=== PATIENT | male | born 1945 | race Caucasian/White ===

== ENCOUNTER 2017-12-06 10:38 | Outpatient (CLI) | payer MEDICARE, BC | END 2017-12-06 10:39 | disposition home or self-care (01) | LOC: BICRAD 10:38 | PROVIDERS: ATTEND Family Medicine | DX: R06.02 Shortness of breath (principal); E78.5 Hyperlipidemia, unspecified | CPT/HCPCS: 36415; 71046; 80061; 80076 ==

== ENCOUNTER 2017-12-23 11:23 | Outpatient (CLI) | payer MEDICARE, BC ==
--- NOTE | 2017-12-23 11:43 | NM ---
RADIONUCLIDE STRESS AND REST MYOCARDIAL PERFUSION SCAN WITH CT ATTENUATION CORRECTION AND SPECT IMAGI NG: LEFT VENTRICULAR WALL MOTION EVALUATION AND EJECTION FRACTION: HISTORY: Chest pain. FINDINGS: Raad protocol. Test time 7 minutes 0 seconds. Heterogeneous uptake of radiotracer throughout the left ventricular myocardium. No focal perfusion d efect or reversibility. QGS analysis of gated SPECT images shows no focal wall motion abnormalities. TID is 0.94. LHR is 30%. Left ventricular ejection fraction is calculated at 66%. IMPRESSION: 1. Normal myocardial perfusion scan. 2. Normal left ventricular ejection fraction. POS: JARROD
== END 2017-12-23 11:24 | disposition home or self-care (01) ==
LOC: NM 11:23
PROVIDERS: ATTEND Family Medicine
DX: R06.02 Shortness of breath (principal)
CPT/HCPCS: 78452; 93017; A9500

== ENCOUNTER 2020-12-29 08:43 | Outpatient (CLI) | payer MEDICARE, BC | END 2020-12-29 08:44 | disposition home or self-care (01) | LOC: BICRAD 08:43 | PROVIDERS: ATTEND Family Medicine | DX: R07.81 Pleurodynia (principal); I70.0 Atherosclerosis of aorta; R91.8 Other nonspecific abnormal finding of lung field | CPT/HCPCS: 71046 ==

== ENCOUNTER 2021-04-21 09:29 | Observation (INO) | payer MEDICARE, BC ==
[2021-04-21 10:09] LABS: #Eosinphils 0.2 thou/uL (0.0-0.7); #Lymphocytes 1.6 thou/uL (1.20-3.40); #Monocytes 0.4 thou/uL (0.11-0.59); #Neutrophils 3.7 thou/uL (1.40-6.50); %Basophils 0.5 % (0.0-1.0); %Eosinophils 2.9 % (0.0-10.0); %Lymphocytes 26.5 % (21.0-51.0); %Monocytes 7.3 % (0.0-10.0); %Neutrophils 62.8 % (42.0-75.0); Hemoglobin 14.9 g/dL (14.0-18.0); Mean Corpuscular HGB CONC 33.2 g/dL (32.0-36.0); Mean Corpuscular Hemoglobin 31.5 pg (27.0-31.0); Mean Corpuscular Volume 94.8 fL (78.0-98.0); Mean Platelet Volume 7.4 fL (7.4-10.4); Platelet Count 214 thou/uL (130-400); RBC Distribution Width 11.9 % (11.5-14.5); Red Blood Cell (RBC) Count 4.72 mill/uL (4.70-6.10); White Blood Cell (WBC) Count 5.9 thou/uL (4.8-10.8)
[2021-04-21 10:25] LABS: ALT (SGPT) 14 U/L (8-55); AST (SGOT) 15 U/L (5-34); Albumin 3.6 g/dL (3.4-4.8); Alkaline Phosphatase 61 U/L (40-110); Anion Gap 14 mmol/L (10-20); BUN (Urea Nitrogen) 11 mg/dL (8.4-25.7); Bilirubin, Total 0.4 mg/dL (0.2-1.2); Calc. Creatinine Clearance 0 mL/min (70-130); Calcium 8.7 mg/dL (7.8-10.44); Carbon Dioxide 22 mmol/L (23-31); Chloride 100 mmol/L (98-107); Globulin 2.3 g/dL (2.4-3.5); Glucose 161 mg/dL (83-110); Lipase 29 U/L (8-78); Potassium 4.3 mmol/L (3.5-5.1); Protein, Total 5.9 g/dL (5.8-8.1); Sodium 132 mmol/L (136-145)
[2021-04-21] MEDS ORDERED: Ondansetron ODT 4 MG TAB PO PRN (13:14)
[2021-04-21] MEDS ORDERED: Acetaminophen 325 MG TAB PO PRN (13:14)
[2021-04-21] MEDS ORDERED: Nitroglycerin 0.4 MG TAB (25 Tab Bottle) SL PRN (13:16)
[2021-04-21] MEDS ORDERED: hydrALAZINE 20 MG/ML VIAL SLOW IVP PRN (13:20)
[2021-04-21] MEDS ORDERED: Electrolyte Replacement Protocol 1 EACH FS SCH (13:30)
[2021-04-21] MEDS ORDERED: Electrolyte Replacement Protocol FS PRN (13:30)
[2021-04-21 13:36] LABS: Troponin I Less than 0.010 ng/mL (< 0.028)
[2021-04-21 15:23] VITALS: BMI 25.8
[2021-04-21] MEDS ORDERED: FLU VACC QS2021-22(65YR UP)/PF 240 MCG/0.7 ML SYRINGE IM ONE (15:30)
[2021-04-21 16:37] LABS: Troponin I Less than 0.010 ng/mL (< 0.028)
[2021-04-21] MEDS ORDERED: Atorvastatin Calcium 40 MG TAB PO SCH (21:00)
[2021-04-21] MEDS ORDERED: Atorvastatin Calcium 10 MG TAB PO SCH (21:00)
[2021-04-21 23:11] LABS: SARS-CoV-2 PCR by NAA Not Detected (NotDetected)
[2021-04-22 06:20] LABS: #Eosinphils 0.3 thou/uL (0.0-0.7); #Lymphocytes 1.6 thou/uL (1.20-3.40); #Monocytes 0.6 thou/uL (0.11-0.59); #Neutrophils 3.8 thou/uL (1.40-6.50); %Basophils 0.7 % (0.0-1.0); %Eosinophils 5.1 % (0.0-10.0); %Lymphocytes 25.7 % (21.0-51.0); %Neutrophils 59.6 % (42.0-75.0); Anion Gap 12 mmol/L (10-20); BUN (Urea Nitrogen) 13 mg/dL (8.4-25.7); Calc. Creatinine Clearance 98 mL/min (70-130); Calcium 8.7 mg/dL (7.8-10.44); Carbon Dioxide 23 mmol/L (23-31); Chloride 102 mmol/L (98-107); Glucose 100 mg/dL (83-110); Hemoglobin 14.3 g/dL (14.0-18.0); Magnesium 1.9 mg/dL (1.6-2.6); Mean Corpuscular HGB CONC 32.9 g/dL (32.0-36.0); Mean Corpuscular Hemoglobin 31.3 pg (27.0-31.0); Mean Corpuscular Volume 94.9 fL (78.0-98.0); Mean Platelet Volume 7.3 fL (7.4-10.4); Platelet Count 209 thou/uL (130-400); Potassium 4.3 mmol/L (3.5-5.1); RBC Distribution Width 11.8 % (11.5-14.5); Red Blood Cell (RBC) Count 4.58 mill/uL (4.70-6.10); Sodium 133 mmol/L (136-145); White Blood Cell (WBC) Count 6.4 thou/uL (4.8-10.8)
[2021-04-22] MEDS ORDERED: Magnesium 2 GM/50 ML 2 GM in Premix Bag 1 BAG IVPB SCH (08:15)
[2021-04-22] MEDS ORDERED: Lisinopril 10 MG TAB PO SCH (09:00)
[2021-04-22] MEDS ORDERED: Iopamidol 370 76% 100 ML VIAL ONE (10:49)
[2021-04-22 19:25] VITALS: BP 135/71; TEMP 97.7
== END 2021-04-22 19:42 | disposition home or self-care (01) ==
LOC: ERS 09:29 → 2NO 13:19
PROVIDERS: ADMIT Internal Medicine; ATTEND Physician Assistant
DX: R07.9 Chest pain, unspecified (principal); I10 Essential (primary) hypertension; E78.5 Hyperlipidemia, unspecified; E87.1 Hypo-osmolality and hyponatremia; J44.9 Chronic obstructive pulmonary disease, unspecified; Z87.891 Personal history of nicotine dependence; Z79.82 Long term (current) use of aspirin; Z79.899 Other long term (current) drug therapy; Z88.2 Allergy status to sulfonamides; Z20.822 Contact with and (suspected) exposure to COVID-19
CPT/HCPCS: 71045; 71275; 78452; 80048; 83690; 83735; 84484 ×2; 85025; 93005; 93017; 94760; 96374; 99285; A9500; G0378 ×3; U0003; U0005; 36415; 80053; 84443; J3475; Q9967

== ENCOUNTER 2023-12-20 11:29 | Outpatient (CLI) | payer MEDICARE, BC | END 2023-12-20 11:30 | disposition home or self-care (01) | LOC: SCSLAB 11:29 → SCSRAD 11:30 | PROVIDERS: ATTEND Family Medicine | DX: M54.2 Cervicalgia (principal); M47.812 Spondylosis without myelopathy or radiculopathy, cervical region | CPT/HCPCS: 72040 ==

== ENCOUNTER 2024-02-15 10:12 | Outpatient (CLI) | payer MEDICARE, BC | END 2024-02-15 10:13 | disposition home or self-care (01) | LOC: SCSMRI 10:12 | PROVIDERS: ATTEND Neurological Surgery | DX: M50.30 Other cervical disc degeneration, unspecified cervical region (principal); M47.812 Spondylosis without myelopathy or radiculopathy, cervical region | CPT/HCPCS: 72141 ==